=== PATIENT | female | born 1950 | race Caucasian/White ===

== ENCOUNTER 2022-07-07 08:00 | Day surgery (SDC) | payer MEDICARE, OTHER ==
[~2022-07-07 08:00] MED LIST: LACTATED RINGERS 1,000 ML IV SCH; LIDOCAINE 1% (10MG/ML) FOR IV START INTRADERMA PRN
[2022-07-07 08:25] VITALS: RESP 16; TEMP 97.6
[2022-07-07] MEDS ORDERED: PROPOFOL 10 MG/ML 20 ML VIAL IV ONE (09:14)
[2022-07-07] MEDS ORDERED: LIDOCAINE 2% INJ 20 MG/ML (2 ML VIAL) ONE (09:14)
--- NOTE | 2022-07-07 09:34 | P.PCN ---
Date of Procedure: 07/07/22 Procedure(s) Performed: Brief history: Patient is a pleasant 72-year-old white female scheduled for an elective upper endoscopy as well as colonoscopy as a part of evaluation of GERD and recent episode of acute colitis versus hospitalized for 2 days. She presented with severe abdominal pain and rectal bleeding and CAT scan showed thickened of the left colon. She is doing well now and rectal bleeding subsided Procedure performed: Esophagogastroduodenoscopy with biopsy Colonoscopy with snare polypectomy Preoperative diagnosis: GERD Recent episode of acute colitis for which she was hospitalized once Anesthesia: MAC Procedure: After informed consent was obtained from the patient was brought into the endoscopy unit and IV sedation was administered by anesthesia under continuous monitoring. Initially upper endoscopy was done. The Olympus GF 160 video endoscope was inserted inserted into the mouth and esophagus intubated without any difficulty and was gradually advanced into the stomach and duodenum and carefully examined. The bulb and second part of the duodenum appeared normal. The scope was then withdrawn into the stomach adequately insufflated with air and upon careful examination the antrum had mild gastritis and biopsies were done from this area. Mucosa body, cardia and fundus appeared normal. The scope was then withdrawn into the esophagus. Moderate size hernia noted. The GE junction was located at 33 cm to the incisors. It appeared regular with no erythema erosions or ulcerations. Rest of the esophagus appeared normal. Patient tolerated the procedure well. At this time the patient continued to remain sedation. Initial digital rectal examination was normal. Olympus CF 160 video colonoscope was then inserted into the rectum and gradually advanced to the cecum without any difficulty. Careful examination was performed as the scope was gradually being withdrawn. The prep was excellent. The cecum, and upon 1.5 cm broad-based polyp removed by snare polypectomy. ascending colon, transverse colon, descending colon appeared normal. Scattered sigmoid diverticulosis seen. Mucosa of the, sigmoid colon and rectum appeared normal. Retroflexion was performed in the rectum and no lesions were noted. Patient tolerated the procedure well. Impression: 1. Upper endoscopy revealed moderate size hiatal hernia and mild antral gastritis 2. Colonoscopy revealed 1.5 cm broad-based cecal polyp status post polypectomy and scattered sigmoid diverticulosis Recommendations: Findings of this examination were discussed with the patient as well as as her family. She was advised to follow with the biopsy result. He is [id number] antacids as needed for the reflux symptoms. If the biopsy the colon polyp reveals adenoma she can have a repeat colonoscopy in 3 years.
[2022-07-07 10:03] VITALS: BP 132/73; PULSE 62
== END 2022-07-07 10:19 | disposition home or self-care (01) ==
LOC: ORWHC2ENDO 08:00
PROVIDERS: ATTEND Internal Medicine Gastroenterology
DX: D12.0 Benign neoplasm of cecum (principal); K29.50 Unspecified chronic gastritis without bleeding; K52.9 Noninfective gastroenteritis and colitis, unspecified; K57.30 Diverticulosis of large intestine without perforation or abscess without bleeding; K21.9 Gastro-esophageal reflux disease without esophagitis; K44.9 Diaphragmatic hernia without obstruction or gangrene
CPT/HCPCS: 88305; 45385; 43239; J2704; J2001